=== PATIENT | male | born 1945 | race Caucasian/White ===

== ENCOUNTER 2017-10-05 19:27 | Emergency (ER) | payer OTHER, MEDICARE ==
[~2017-10-05] VITALS: Ht 162.6 cm; Wt 77.9 kg
[~2017-10-05 19:27] MED LIST: ADVI200C9 PO; ASPI81 PO; DARV PO; PHEN12.5 PO; PRIL40CA PO; TAB-TAB PO
[2017-10-05 19:36] VITALS: BP 142/77; PULSE 74; RESP 18; TEMP 98.4; O2SAT 97
[2017-10-05] MEDS ORDERED: AMLO10TA2 PO (20:06)
[2017-10-05] MEDS ORDERED: ROPI1TAB PO (20:06)
[2017-10-05] MEDS ORDERED: OMEP20TA93 PO (20:06)
[2017-10-05] MEDS ORDERED: TAMS0.4C4 (20:06)
[2017-10-05] MEDS ORDERED: LEVO75TA3 PO (20:06)
[2017-10-05] MEDS ORDERED: ASPI81CH7 CHEW (20:06)
[2017-10-05] MEDS ORDERED: AUGM875T3 PO (20:39)
--- NOTE | 2017-10-05 20:39 | PD ---
HPI Chief Complaint: Bite or Sting Time Seen by Provider: 20:23 Travel History International Travel<30 days: No Contact w/Intl Traveler<30days: No Traveled to known affect area: No History of Present Illness HPI 72-year-old male here with a dog bite to the left lower extremity. 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 The customer's report does up-to-date on immunizations. He has a single puncture wound to his left calf. Bleeding is well controlled. He reports mild pain at the site of the puncture wound. His tetanus immunization is up-to- date. Symptom severity is moderate. No aggravating or alleviating factors. 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) Social History Alcohol Use: Yes (1-2 TMES A WEEK) Tobacco Use: No (QUIT 8 YEARS AGO) Substance Use: No Allergies-Medications (Allergen,Severity, Reaction): Coded Allergies: No Known Allergies (Verified Adverse Reaction, Unknown, 10/05/17) Reported Meds & Prescriptions Reported Meds & Active Scripts Active Reported Ropinirole 1 Mg Tab 2 Mg PO HS Aspirin Children's (Aspirin) 81 Mg Chew 81 Mg CHEW DAILY Levothyroxine (Levothyroxine Sodium) 75 Mcg Tab 75 Mcg PO DAILY Tamsulosin (Tamsulosin HCl) 0.4 Mg Cap 0.4 Mg HS Omeprazole 20 Mg Tab 20 Mg PO DAILY Amlodipine (Amlodipine Besylate) 10 Mg Tab 10 Mg PO DAILY Review of Systems Except as stated in HPI: all other systems reviewed are Neg General / Constitutional: No: Fever Eyes: No: Visual changes HENT: No: Headaches Cardiovascular: No: Chest Pain or Discomfort Respiratory: No: Shortness of Breath Physical Exam Narrative GENERAL: Alert and well-appearing 72-year-old male SKIN: Warm and dry. HEAD: Normocephalic. EYES: No scleral icterus. No injection or drainage. NECK: Supple CARDIOVASCULAR: Regular rate and rhythm RESPIRATORY: Breath sounds equal bilaterally. No accessory muscle use. GASTROINTESTINAL: nondistended. MUSCULOSKELETAL: No cyanosis, or edema. Single puncture wound to the left posterior calf. Bleeding well controlled. No abnormality of the soft tissue palpated. Patient has normal sensation and full range of motion of the extremity. Data Data Last Documented VS Vital Signs Date Time Temp Pulse Resp B/P (MAP) Pulse Ox O2 Delivery O2 Flow Rate FiO2 10/05/17 19:36 98.4 74 18 142/77 (98) 97 MDM Medical Decision Making Medical Screen Exam Complete: Yes Emergency Medical Condition: Yes Differential Diagnosis Puncture wound, animal bite, wound infection Narrative Course 72-year-old male here for evaluation of dog bite to left leg. He has a single puncture wound. No palpable soft tissue abnormality to indicate retained foreign body. Will be treated with antibiotics. Wound care discussed. He agrees to follow-up with his primary doctor. Diagnosis Primary Impression: Animal bite Referrals: Primary Care Physician Additional Instructions: Antibiotics as directed. Wash the area daily with soap and water. Apply a thin layer of antibiotic ointment and cover with a dressing. Return if he develop new or worsening symptoms Scripts Amoxicillin-Clavulanate (Augmentin) 875-125 Mg Tab 1 TAB PO BID for Infection, #14 TAB 0 Refills Prov: Fidelia Mclaughlin 10/05/17 Disposition: 01 DISCHARGE HOME Condition: Stable Fidelia Mclaughlin Oct 05, 2017 20:39
== END 2017-10-05 21:00 | disposition home or self-care (01) ==
LOC: PHEFT 19:27
DX: S81.852A Open bite, left lower leg, initial encounter (principal); W54.0XXA Bitten by dog, initial encounter; Y99.0 Civilian activity done for income or pay; I10 Essential (primary) hypertension; K21.9 Gastro-esophageal reflux disease without esophagitis; G25.81 Restless legs syndrome; E07.9 Disorder of thyroid, unspecified; Z85.818 Personal history of malignant neoplasm of other sites of lip, oral cavity, and pharynx; Z87.891 Personal history of nicotine dependence
CPT/HCPCS: 99283